=== PATIENT | female | born 1955 | race African-American/Black ===

== ENCOUNTER 2019-08-05 08:21 | Outpatient (CLI) | payer MEDICARE ==
[2019-08-05] VITALS (9 sets, daily range): BP systolic 104–136; BP diastolic 61–82
[~2019-08-05] VITALS: Ht 167.6 cm; Wt 83.0 kg
[2019-08-05] MEDS ORDERED: SULF1TAB23 PO (08:51)
[2019-08-05] MEDS ORDERED: HYDR200T71 PO (08:51)
[2019-08-05] MEDS ORDERED: PRED2.5T PO (08:51)
[2019-08-05] MEDS ORDERED: AMLO5TAB10 PO (08:51)
[2019-08-05] MEDS ORDERED: FEXO180T81 PO (08:51)
[2019-08-05] MEDS ORDERED: BREO ELLIPTA 11 EACH IH (08:51)
[2019-08-05] MEDS ORDERED: ATOR40TA59 PO (08:51)
[2019-08-05 08:59] LABS: BASO % 0 % (0-3); EOS % 0 % (0-3); HEMATOCRIT 36.2 % (36.0-47.0); HEMOGLOBIN 11.3 g/dL (12.0-15.5); LYMPH # 0.3 x10^3/uL (1.0-4.8); LYMPH % 11 % (24-48); MEAN CORPUSCULAR HEMOGLOBIN 21 pg (25-35); MEAN CORPUSCULAR HGB CONC 31 g/dL (31-37); MEAN CORPUSCULAR VOLUME 68 fL (79-100); MONO # 0.2 x10^3/uL (0.0-1.1); MONO % 9 % (0-9); NEUT % 79 % (31-73); PLATELET COUNT 186 x10^3/uL (140-400); RED BLOOD COUNT 5.29 x10^6/uL (3.50-5.40); RED CELL DISTRIBUTION WIDTH 18.3 % (11.5-14.5); WHITE BLOOD COUNT 2.6 x10^3/uL (4.0-11.0)
[2019-08-05] MEDS ORDERED: LIDOCAINE WITH 8.4% SOD BICARB 3 ML DISP.SYRIN. ONE (09:02)
[2019-08-05 09:06] LABS: PROTHROMBIN TIME PATIENT 12.8 SEC (11.7-14.0)
[2019-08-05] MEDS ORDERED: fentaNYL PF VIAL 100 MCG/2 ML VIAL ONE (09:34)
[2019-08-05] MEDS ORDERED: METF500T16 PO (09:34)
[2019-08-05] MEDS ORDERED: MONT10TA49 PO (09:34)
[2019-08-05] MEDS ORDERED: MIDAZOLAM HCL/PF 2 MG/2 ML VIAL. ONE (09:34)
[2019-08-05] MEDS ORDERED: LIDOCAINE WITH 8.4% SOD BICARB 3 ML DISP.SYRIN. IJ ONE (09:45)
[2019-08-05] MEDS ORDERED: MIDAZOLAM HCL/PF 2 MG/2 ML VIAL. IV ONE (09:45)
[2019-08-05] MEDS ORDERED: fentaNYL PF VIAL 100 MCG/2 ML VIAL IV ONE (09:45)
[2019-08-05 11:03] LABS: % BANDS 3 % (0-9); % LYMPHS 14 % (24-48); % METAS 1 % (0-0); % MONOS 5 % (0-10); % SEGS 77 % (35-66); NUCLEATED RBC 1; PLT ESTIMATE ADEQUATE (ADEQUATE)
[2019-08-05 11:04] LABS: ACANTHOCYTES OCC; ANISOCYTOSIS MOD; BURR CELLS OCC; HYPOCHROMIA SLIGHT; MICROCYTOSIS MOD; OVALOCYTES MOD; TEAR DROP CELLS FEW
--- NOTE | 2019-08-05 11:15 | NUR ---
Discharge Note: SINDY LAZO Discharge instructions and discharge home medications reviewed with Patient and a copy given. All questions have been answered and understanding verbalized. Dressing to sacral site remains clean and dry The following instructions and handouts were given: Bone marrow biopsy, moderate sedation Discontinued lines and drains: Peripheral IV intact. Patient discharged to Home or Self Care with Spouse via Wheelchair DAPHNE SIDHU Addendum: 08/05/19 at 1235 by LUIS RASHID RN Amended: Links added.
--- NOTE | 2019-08-11 16:06 | PATHOLOGY ---
[facility] Accession Number: [id number] . 01 Material submitted: . PART A: bone - BONE MARROW BIOPSY PART B: bone - BONE MARROW ASPIRATE CLOT PART C: bone - BONE MARROW ASPIRATE SLIDE PART D: peripheral nerves - PERIPHERAL BLOOD SMEAR PART E: bone - BONE MARROW FLOW . 01 Clinical history: . Leukopenia . 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 - Mild microcytic anemia with moderate anisopoikilocytosis and increased ovalocytes. . Bone marrow, aspirate smears, clot section, and core biopsy: - Variable normocellular to mildly hypercellular marrow showing trilineage hematopoiesis, no significant dyspoiesis, and markedly reduced iron stores. . (SHAHNAZM:felicia; 08/11/2019) [facility] 08/11/2019 1545 Local . 02 Comment: The peripheral smear shows mild leukopenia and absolute lymphopenia with leukoerythroblastic reaction, and mild microcytic anemia with moderate anisopoikilocytosis and increased ovalocytes. The bone marrow is normocellular to mildly hypercellular and shows trilineage hematopoiesis, no significant dyspoiesis, and markedly decreased iron stores. Flow cytometric analysis of bone marrow shows no immunophenotypic evidence of a lymphoproliferative disorder, acute leukemia, increase in blasts, or plasma cell neoplasm. The leukopenia and lymphopenia are most likely due to the patient's underlying autoimmune disorder (lupus) and medication therapy (Plaquenil and Rituximab). The leukoerythroblastic reaction is most likely reactive. With regards to the patient's microcytic anemia, bone marrow iron stores are markedly reduced. However, there are prominent numbers of ovalocytes suggesting the possibility of hereditary ovalocytosis. Correlate clinically. (SHAHNAZM:felicia; 08/11/2019) . Special stains performed: Iron stain on B1 and C1, reticulin stain on A1. . 02 Electronically signed: . Lul Hodge MD, Pathologist NPI- [id number] . 01 Gross description: . A. The specimen is received in formalin, labeled "Courtney Cabrera BM BX". Received is a single needle core of light ferreira bone measuring 1.2 cm in length by 0.3 cm in diameter. The specimen is submitted entirely in cassette A1, following light decalcification. . B. The specimen is received in formalin, labeled "Courtney Cabrera, BM aspirate clot". Received is blood coagulum measuring 3.0 x 2.3 x 0.3 cm in aggregate dimensions. The specimen is filtered and entirely submitted in cassette B1. (CAA; 08/05/2019) [facility] 08/05/2019 1532 Local . 02 Microscopic: . Laboratory Data: The WBC count is 2.6 K/CMM, and the WBC differential reveals 77% segmented neutrophils, 3% bands, 14% lymphs, 5% monos, and 1% metamyelocytes. One nucleated RBC per 100 WBCs are noted. The RBC count is 5.29 M/CMM, hemoglobin 11.3 G/DL, hematocrit 36.2%, MCV 68 FL, MCH 21 PG, MCHC 31 G/DL, and the RDW is 18.3%. The platelet count is 186 K/CMM. . Peripheral Smear: The peripheral smear is reviewed. The WBC count is mildly decreased. There is an absolute lymphopenia. The WBC differential reveals a predominance of segmented neutrophils, with small populations of lymphocytes and monocytes noted. There is a leukoerythroblastic reaction comprised of a few circulating metamyelocytes and myelocytes and a rare nucleated red blood cell. Red blood cells predominantly appear normochromic, with a few hypochromic red blood cells noted. Red blood cells predominantly appear microcytic and show moderate anisocytosis. Red blood cells show moderate poikilocytosis comprised principally of ovalocytes with a few spiculated red blood cells noted. Platelets appear normal in number and morphology with a few large platelets noted. . Aspirate Smears: Three Lisa's-stained and one iron-stained aspirate smears are examined. The smears contain several marrow particles. The M/E ratio is within normal range. Erythroid maturation is normoblastic. There are no megaloblastic or overt dysplastic changes. Granulocytic precursors appear adequate in number. There are areas suggesting a mild left shift of granulopoiesis. There are no obvious dysplastic changes. There is no increase of blasts. Megakaryocytes are adequate in number and are focally clustered. The megakaryocytes are of variable ploidy. There are a few admixed plasma cells with no significant increase of plasma cells noted. Lymphocytes are not increased. There are no cells foreign to the marrow. The iron stain reveals a single small marrow particle showing absent iron stores. There are no ringed sideroblasts. . Bone Marrow Biopsy and Clot Section: Sections of the bone marrow biopsy reveal segments of bone marrow showing focal aspiration artifact. Preserved areas of the biopsy are on the order of 50-60% cellular. The clot section contains multiple marrow particles, the majority of which are on the order of 40-50% cellular. There is trilineage hematopoiesis. There is a good admixture of erythroid and granulocytic precursors, which are present in varying stages of maturation. There is no apparent increase of blasts. Megakaryocytes appear adequate in number and are focally clustered. The megakaryocytes are of variable ploidy. Plasma cells do not appear increased. There is no apparent increase of lymphocytes. There are no abnormal lymphoid aggregates, granulomas, or cells foreign to the marrow. A reticulin stain performed on the biopsy shows no significant increase of reticulin fibers. An iron stain obtained on the clot section shows markedly reduced iron stores. . Special Studies: Bone marrow submitted for flow cytometric analysis has a viability of 96.8%. Granulocytes comprise 88.9% of total cells and show phenotypic evidence of maturation without dysmaturation. Monocytes comprise 7.1% of total cells. CD45 dim, CD34 positive cells comprise 0.8% of total cells. Lymphocytes comprise 2.1% of total cells. T-cells comprise 65% of lymphoid cells and show a CD4/CD8 ratio of 1.3. NK-cells comprise 29% of lymphoid cells. Mature B-cells comprise 2% of lymphoid cells. Plasma cells are not increased. . Bone marrow submitted for cytogenetic analysis shows a normal female karyotype in all cells analyzed. (WENDIE:felicia; 08/07/2019) . 02 Pathologist provided ICD-10: D72.819, D72.810, D50.9 . 02 CPT . 741594, 002608, 206421, 204589, 145914, 848342, 815907, 713159 Specimen Comment: A courtesy copy of this report has been sent to [phone], [phone] Specimen Comment: [phone], Specimen Comment: Report sent to ,DR CABRERA / DR STEELE Performed at: [address] [facility] [address], [place] [id number] MD Raul Bose MD Phone: [phone] Performed at: 02 [facility] [place] [address] [place], [place] [id number] MD Lul Hodge MD Phone: [phone]
--- NOTE | 2019-08-12 16:08 | RAD ---
CT-guided bone marrow biopsy. 08/12/2019 2:04 PM Indication: LEUKOPENIA Discussion: The risks and benefits of the procedure, including but not limited to, bleeding and infection were discussed patient. Informed consent was obtained. The patient was brought to the CT scanner and placed in the prone position. A timeout procedure was performed. Supervisor Insecticide CT imaging of the pelvis demonstrated left ilium amenable to bone marrow biopsy. The overlying soft tissues were prepped and draped using maximum sterile barrier technique. 1% lidocaine without epinephrine was administered for local anesthesia. Under intermittent CT guidance, an OncControl needle was advanced into the bone marrow of the left iliac crest. 2 Aspirates and 1 core biopsy samples were obtained. Samples were delivered to pathology was present at the time of procedure. The needle was removed and manual pressure held to achieve hemostasis. No immediate complications were identified. The procedure was performed under conscious sedation including continuous cardiopulmonary monitoring via dedicated sedation nurse. Sedation time: 15 minutes Impression: Successful CT-guided bone marrow biopsy of the left iliac crest . PQRS Compliance Statement: One or more of the following individualized dose reduction techniques were utilized for this examination: 1. Automated exposure control 2. Adjustment of the mA and/or kV according to patient size 3. Use of iterative reconstruction technique
== END 2019-08-05 11:15 | disposition home or self-care (01) ==
LOC: INTRAD 08:21
PROVIDERS: ATTEND Internal Medicine Hematology & Oncology
DX: D72.819 Decreased white blood cell count, unspecified (principal); Z79.01 Long term (current) use of anticoagulants
CPT/HCPCS: 36415; 38222; 77012; 85025; 85610; 88184; 88185; 88237; 99152; J2250; J3010; J3490; 85007

== ENCOUNTER → 2020-05-07 | Outpatient (CLI) | payer MEDICARE ==
[2019-08-05 11:05] VITALS: BP 119/75
[~2020-05-07] MED LIST: AMLO-186 PO; ATOR40TA59 PO; BREO ELLIPTA 11 EACH IH; FEXO180T81 PO; HYDR200T71 PO; METF500T16 PO; MONT10TA49 PO; PRED2.5T PO; SULF1TAB23 PO
--- NOTE | 2020-05-07 14:20 | CARD ---
MR#: [id number] Date of Study: 05/07/2020 Ordering Physician: MAGDY ZIMMERMAN, Referring Physician: MAGDY ZIMMERMAN, Tech: APPROVED REPORT EXAM: Two-dimensional and M-mode echocardiogram with Doppler and color Doppler. INDICATION Palpitations RISK FACTORS Hypertension Hyperlipidemia Diabetes 2D DIMENSIONS RVDd3.0 (2.9-3.5cm)Left Atrium(2D)3.6 (1.6-4.0cm) IVSd1.2 (0.7-1.1cm)Aortic Root(2D)3.0 (2.0-3.7cm) LVDd4.4 (3.9-5.9cm)LVOT Diameter2.0 (1.8-2.4cm) PWd1.3 (0.7-1.1cm)LVDs2.9 (2.5-4.0cm) FS (%) 34.6 %SV55.0 ml LVEF(%)63.9 (>50%) Aortic Valve AoV Peak Dhaval.143.2cm/sAoV VTI27.2cm AO Peak GR.8.2mmHgLVOT Peak Dhaval.114.8cm/s AO Mean GR.3mmHgAVA (VMAX)2.61cm2 Mitral Valve MV E Mrpissmz22.6cm/sMV DECEL NRCL273lq MV A Hxzqfzvh04.0cm/sE/A Ratio1.2 Pulmonary Valve PV Peak Ndgnhrdy89.6cm/s Tricuspid Valve TR P. Ujqdpvtw492th/sTR Peak Gr.25mmHg Pulmonary Vein S1 Gqizxwhe55.2cm/sD2 Ofthvyse12.6cm/s PVa qqfqydcx621uvhp LEFT VENTRICLE The left ventricle is normal size. There is mild concentric left ventricular hypertrophy. The left ve ntricular systolic function is normal. Estimated ejection fraction 55-60%. There is normal LV segmen rosenda wall motion. The left ventricular diastolic function and filling is normal for age. RIGHT VENTRICLE The right ventricle is normal size. There is normal right ventricular wall thickness. The right ventr icular systolic function is normal. ATRIA The left atrium size is normal. The right atrium size is normal. The interatrial septum is intact wit h no evidence for an atrial septal defect or patent foramen ovale as noted on 2-D or Doppler imaging. AORTIC VALVE The aortic valve is thickened but opens well. Doppler and Color Flow revealed mild aortic regurgitati on. There is no significant aortic valvular stenosis. MITRAL VALVE The mitral valve is normal in structure and function. There is no evidence of mitral valve prolapse. There is no mitral valve stenosis. Doppler and Color-flow revealed mild mitral regurgitation. TRICUSPID VALVE The tricuspid valve is normal in structure and function. Doppler and Color Flow revealed mild tricusp id regurgitation. Estimated PAP 28 mmHg. There is no tricuspid valve stenosis. PULMONIC VALVE The pulmonary valve is normal in structure and function. Doppler and Color Flow revealed mild pulmoni c valvular regurgitation. GREAT VESSELS The aortic root is normal in size. The ascending aorta is Mildly dilated. The pulmonary artery is nor mal. The IVC is normal in size and collapses >50% with inspiration. PERICARDIAL EFFUSION There is no evidence of significant pericardial effusion. Critical Notification Critical Value: No <Conclusion> The left ventricular systolic function is normal. Estimated ejection fraction 55-60%. There is normal LV segmental wall motion. Mild aortic regurgitation. Mild mitral regurgitation. Mild tricuspid regurgitation. Estimated PAP 28 mmHg. There is no evidence of significant pericardial effusion. Signed by : Magdy Zimmerman, Electronically Approved : 05/07/2020 14:19:47
== END ==
LOC: ECHO 08:46
PROVIDERS: ATTEND Internal Medicine Cardiovascular Disease
DX: I08.8 Other rheumatic multiple valve diseases (principal); I77.810 Thoracic aortic ectasia
CPT/HCPCS: 93306

== ENCOUNTER → 2020-09-20 | Outpatient (CLI) | payer MEDICARE ==
[2019-08-05 11:05] VITALS: BP 119/75
[~2020-09-20] MED LIST changes: +REGADENOSON 0.4 MG/5 ML DISP.SYRIN. IV ONE
--- NOTE | 2020-09-20 13:40 | RAD ---
MR#: [id number] Date of Study: 09/20/2020 Ordering Physician: MAGDY CHAWLA, Referring Physician: MICHAEL LEDEZMA Tech: GLORY Stanton APPROVED REPORT Test Type: Pharmacological Stress Nurse/Tech: Quinn Nam RN Test Indications: Dyspnea on exertion Cardiac History: HTN, See EMR. Medications: See EMR. Medical History: Asthma, DM, See EMR. Resting ECG: SR Resting Heart Rate: 73 bpm Resting Blood Pressure: 113/88mmHg Pretest Chest Pain: No chest pain Nurse/Tech Notes Lungs CTA, Heart tones regular. Consent: The procedure was explained to the patient in lay terms. Informed consent was witnessed. Zach eout was entered into [employer]. History and Stress Test performed by RAI Nguyen, ZAFAR (R) (N) Pharm. Details Pharmacologic stress testing was performed using 0.4mg per 5ml of regadenoson given intravenously ove r 7-10 seconds. Stress Symptoms No chest pain or symptoms. POST EXERCISE Reason for Termination: Infusion complete Max HR: 96 bpm Max Blood Pressure: 132/74mmHg Blood Pressure response to exercise: Normal blood pressure response during stress. Chest Pain: No. Arrhythmia: No. ST Change: No. No changes from baseline EKG. INTERPRETATION Stress EKG Conclusion: Baseline EKG showed sinus rhythm. No ischemic changes at peak stress. No arr hythmias. Imaging Protocol IMAGE PROTOCOL: Rest Tc-99m/stress Tc-99m 1 day Rest: Stress: Viability: Radiopharm.Tc99m RbsqaoahuGa01k Sestamibi Ngjn48wZh 31mCi Duration 15min. 13min. Img Date 09/20/2020 09/20/2020 Inj-Img Jhnv92nwo. 60min. Rest Admin Site:IV - Right ForearmAdministrator:RAI Nguyen ARRT (R)(N) Stress Admin Site: IV - Right ForearmAdministrator: RAI Nguyen ARRT (R)(N) STRESS DATA End Diast. Vol.84.0mlLVEDV index BSA44.0ml End Syst. Vol.16.0mlLVESV index BSA8.0ml Myocardial Rjaj596.0gEject. Gybvrhpr28.0% Stress Scores Regional WT0.00Summed WT6.00 Regional WM0.00Summed WM0.00 LV Perfusion Scintigraphic images showed fixed anterior wall defect most probably breast attenuation artifact base d on normal wall motion. No other fixed or reversible defects seen. Wall Motion Normal left ventricle systolic function with ejection fraction calculated at 83%. LV Perf. Quant 17 Seg. SSS7.00 17 Seg. SRS9.00 17 Seg. SDS1.00 Stress Defect Extent (% LAD)4.40Rest Defect Extent (% LAD)13.10Rev. Defect Extent (% LAD)0.00 Stress Defect Extent (% LCX) 22.50Rest Defect Extent (% LCX)53.80Rev. Defect Extent (% LCX)0.00 Stress Defect Extent (% RCA)0.00Rest Defect Extent (% RCA)0.00Rev. Defect Extent (% RCA)0.00 Stress Defect Extent (% TRA)8.00Rest Defect Extent (% TRA)17.40Rev. Defect Extent (% RTA)0.00 Conclusion 1. Regadenoson cardioisotope stress test showed breast attenuation artifact without any evidence of i schemia or infarct. 2. Normal left ventricular systolic function with ejection fraction calculated at 83%. 3. Low risk for cardiac events. Signed by : Magdy Chawla, Electronically Approved : 09/20/2020 13:39:45
== END ==
LOC: NM 10:11
PROVIDERS: ATTEND Internal Medicine Cardiovascular Disease
DX: R06.09 Other forms of dyspnea (principal)
CPT/HCPCS: 78452; 93017; A9500; J2785

== ENCOUNTER → 2021-06-27 | Outpatient (CLI) | payer MEDICARE ==
[2019-08-05 11:05] VITALS: BP 119/75
[~2021-06-27] MED LIST changes: -REGADENOSON 0.4 MG/5 ML DISP.SYRIN. IV ONE
--- NOTE | 2021-06-27 15:16 | CARD ---
MR#: [id number] Date of Study: 06/27/2021 Ordering Physician: MAGDY ZIMMERMAN, Referring Physician: Emerita LEDEZMA: Aris Mckenzie [facility] APPROVED REPORT EXAM: Two-dimensional and M-mode echocardiogram with Doppler and color Doppler. Other Information Quality : AverageHR: 75bpm Rhythm : NSR INDICATION PVC's RISK FACTORS Hypertension 2D DIMENSIONS Left Atrium(2D)3.6 (1.6-4.0cm)IVSd1.4 (0.7-1.1cm) Aortic Root(2D)3.2 (2.0-3.7cm)LVDd4.2 (3.9-5.9cm) LVOT Diameter2.0 (1.8-2.4cm)PWd1.4 (0.7-1.1cm) LA Ywuara88 (18-58mL)LVDs2.4 (2.5-4.0cm) FS (%) 43.3 %SV59.2 ml LVEF(%)74.8 (>50%) Aortic Valve AoV Peak Dhaval.156.4cm/sAoV VTI34.9cm AO Peak GR.9.8mmHgLVOT Peak Dhaval.114.2cm/s LVOT VTI 26.53cmAO Mean GR.6mmHg NILESH (VMAX)1.99cy9JSW (VTI)2.35cm2 AI P 1/2 Uhtf482io Mitral Valve MV E Axiwosas48.1cm/sMV DECEL BJCC061es MV A Mezdxyvk97.4cm/sMV DEG59ii E/A Ratio0.9MVA (PHT)3.54cm2 TDI E/Lateral E'9.7E/Medial E'15.0 Pulmonary Valve PV Peak Cpysgwvj557.1cm/sPV Peak Grad.4mmHg Tricuspid Valve TR P. Tfbhflro729sn/sTR Peak Gr.26mmHg Pulmonary Vein S1 Ysvjppyq71.5cm/sD2 Owijhckq14.2cm/s LEFT VENTRICLE The left ventricle is normal size. There is normal left ventricular wall thickness. The left ventricu lar systolic function is normal. The ejection fraction is 60-65%. There is normal LV segmental wall m otion. Transmitral Doppler flow pattern is Grade I-abnormal relaxation pattern. No left ventricle thr ombus noted on this study. There is no ventricular septal defect visualized. There is no left ventric ular aneurysm. There is no mass noted in the left ventricle. RIGHT VENTRICLE The right ventricle is normal size. There is normal right ventricular wall thickness. The right ventr icular systolic function is normal. ATRIA The left atrium is borderline dilated. The right atrium size is normal. The interatrial septum is int act with no evidence for an atrial septal defect or patent foramen ovale as noted on 2-D or Doppler i maging. AORTIC VALVE The aortic valve is moderately thickened but opens well. Doppler and Color Flow revealed mild aortic regurgitation. There is no significant aortic valvular stenosis. There is no aortic valvular vegetati on. MITRAL VALVE The mitral valve is normal in structure and function. There is no evidence of mitral valve prolapse. There is no mitral valve stenosis. Doppler and Color-flow revealed trace to mild mitral regurgitation . TRICUSPID VALVE The tricuspid valve is normal in structure and function. Doppler and Color Flow revealed trace tricus pid regurgitation. There is no tricuspid valve prolapse or vegetation. There is no tricuspid valve st enosis. PULMONIC VALVE The pulmonary valve is normal in structure and function. Doppler and Color Flow revealed no pulmonic valvular regurgitation. There is no pulmonic valvular stenosis. GREAT VESSELS The aortic root is normal in size. The ascending aorta is mildly dilated at 3.9 cm. The pulmonary art olivia is normal. The IVC is normal in size and collapses >50% with inspiration. PERICARDIAL EFFUSION There is no pleural effusion. There is no evidence of significant pericardial effusion. Critical Notification Critical Value: No <Conclusion> The left ventricular systolic function is normal. The ejection fraction is 60-65%. There is normal LV segmental wall motion. Transmitral Doppler flow pattern is Grade I-abnormal relaxation pattern. Mild aortic regurgitation. Trace to mild mitral regurgitation. Trace tricuspid regurgitation. There is no evidence of significant pericardial effusion. Signed by : Magdy Zimmerman, Electronically Approved : 06/27/2021 15:15:52
== END ==
LOC: ECHO 12:53
PROVIDERS: ATTEND Internal Medicine Cardiovascular Disease
DX: I08.0 Rheumatic disorders of both mitral and aortic valves (principal); I77.819 Aortic ectasia, unspecified site; I48.3 Typical atrial flutter
CPT/HCPCS: 93306; C8929